=== PATIENT | male | born 1955 | race Two or more races ===

== ENCOUNTER 2017-05-15 20:30 | Emergency (ER) | payer BC ==
[~2017-05-15] VITALS: Ht 165.1 cm; Wt 97.0 kg
[2017-05-15 22:01] LABS: HEMATOCRIT. 37.5 % (42.0-52.0); HEMOGLOBIN. 12.5 g/dL (14.0-18.0); MEAN CORPUSCULAR VOLUME 90.2 fL (80.0-94.0); MEAN PLATELET VOLUME 9.7 fl (7.4-10.4); PLATELET 157 x1000/uL (130-400); RED BLOOD CELL COUNT 4.16 mill/uL (4.7-6.1); RED CELL DISTRIBUTION WIDTH 14.4 % (11.6-14.6)
[2017-05-15 22:02] LABS: CHLORIDE 104 mEq/L (98-107)
[2017-05-15 22:06] LABS: INR 1.1; PARTIAL THROMBOPLASTIN TIME 22.2 sec (24.0-34.0)
[2017-05-15 22:09] LABS: CARBON DIOXIDE 27 mEq/L (21-32)
[2017-05-15 22:14] LABS: CREATINE KINASE 77 IU/L (39-308); TROPONIN I < 0.02 ng/mL (0.00-0.04)
[2017-05-15 22:16] LABS: PLATELET ESTIMATE NORMAL
[2017-05-15] MEDS ORDERED: SODIUM CHLORIDE 0.9% 1,000 ML IV ONE (23:07)
[2017-05-15 23:52] LABS: CLARITY URINE CLEAR (CLEAR); COLOR URINE YELLOW (YELLOW); GLUCOSE URINE NEGATIVE (NEGATIVE); KETONES URINE NEGATIVE (NEGATIVE); LEUKOCYTE ESTERASE URINE NEGATIVE (NEGATIVE); NITRITE URINE NEGATIVE (NEGATIVE); OCCULT BLOOD URINE NEGATIVE (NEGATIVE); PROTEIN URINE NEGATIVE (NEGATIVE); UROBILINOGEN URINE 0.2 E.U./dL (0.2-1.0)
[2017-05-16 00:20] VITALS: BP 124/77
== END 2017-05-16 00:20 | disposition home or self-care (01) ==
LOC: ER 22:35
DX: E86.0 Dehydration (principal); J45.909 Unspecified asthma, uncomplicated
CPT/HCPCS: 36415; 74022; 80053; 81003; 82550; 82553; 83690; 84443; 84484; 85025; 85610; 85730; 93005; 96360; 99285; J7030; Z7610